=== PATIENT | female | born 1955 | race Two or more races ===

== ENCOUNTER 2018-03-24 21:21 | Emergency (ER) | payer OTHER ==
[~2018-03-24] VITALS: Ht 152.4 cm; Wt 68.0 kg
[~2018-03-24 21:21] MED LIST: AMBIEN10 MG; ASA81 MG; ATENOLOL; CALAN 240 MG; CARAFATE SU1 G/10 ML; CLONOPIN 1MG; COZAAR100 MG; HYDROCHLOROTH12.5 MG; HYZAAR; METFORMIN; METFORMIN HCL1000 MG; MOTRIN800 MG PO; NORVASC5 MG; PAXIL20 MG; PEPCID40 MG PO; PRAVACOL; PRISTIC; REGLAN5 MG/5 ML; RELAFEN500 MG PO; SEROQUEL; SEROQUEL XR200 MG; SYNTHROID50 MCG; TOPROL XL25 MG; ZANTAC150 M1
[2018-03-24] MEDS ORDERED: TOPROL XL50 M1 (21:52)
[2018-03-24] MEDS ORDERED: CLONAZEPAM2 MG (21:53)
[2018-03-24] MEDS ORDERED: JANUVIA100 MG (21:53)
[2018-03-24] MEDS ORDERED: LIPITOR20 MG (21:54)
== END 2018-03-24 23:51 | disposition home or self-care (01) ==
LOC: ER 21:21
DX: I10 Essential (primary) hypertension (principal)

== ENCOUNTER 2018-11-12 11:20 | Emergency (ER) | payer OTHER ==
[~2018-11-12] VITALS: Ht 152.4 cm; Wt 69.9 kg
[~2018-11-12 11:20] MED LIST changes: +CLONAZEPAM2 MG; +JANUVIA100 MG; +LIPITOR20 MG; +TOPROL XL50 M1
== END 2018-11-12 20:22 | disposition home or self-care (01) ==
LOC: ER 11:20
DX: R55 Syncope and collapse (principal)

== ENCOUNTER 2019-06-02 18:16 | Emergency (ER) | payer OTHER ==
[~2019-06-02] VITALS: Ht 152.4 cm; Wt 64.4 kg
[2019-06-02] MEDS ORDERED: WELLBUTRIN SR150 MG (18:28)
[2019-06-02] MEDS ORDERED: [UNRECOGNIZED DRUG - OTHER] (18:28)
[2019-06-02] MEDS ORDERED: CALTRATE 600 +1 EACH (18:28)
[2019-06-03] MEDS ORDERED: PHENERGAN25 MG PO (04:17)
== END 2019-06-03 04:14 | disposition home or self-care (01) ==
LOC: ER 18:16
DX: K29.60 Other gastritis without bleeding (principal)

== ENCOUNTER 2019-10-25 19:14 | Emergency (ER) | payer OTHER ==
[~2019-10-25] VITALS: Ht 152.4 cm; Wt 65.8 kg
[~2019-10-25 19:14] MED LIST changes: +CALTRATE 600 +1 EACH; +PHENERGAN25 MG PO; +WELLBUTRIN SR150 MG; +[UNRECOGNIZED DRUG - OTHER]
[2019-10-25] MEDS ORDERED: ATIVAN1 M1 (19:53)
[2019-10-25] MEDS ORDERED: JANUVIA100 MG (19:53)
[2019-10-25] MEDS ORDERED: RESTORIL30 MG (19:54)
== END 2019-10-25 21:13 | disposition home or self-care (01) ==
LOC: ER 19:14
DX: M94.0 Chondrocostal junction syndrome [Tietze] (principal)

== ENCOUNTER 2020-03-17 09:42 | Emergency (ER) | payer OTHER ==
[~2020-03-17] VITALS: Ht 152.4 cm; Wt 65.8 kg
[~2020-03-17 09:42] MED LIST changes: +ATIVAN1 M1; +RESTORIL30 MG
[2020-03-17] MEDS ORDERED: ALDACTONE (09:55)
== END 2020-03-17 15:04 | disposition home or self-care (01) ==
LOC: ER 09:42
DX: K29.60 Other gastritis without bleeding (principal)

== ENCOUNTER 2020-03-28 11:45 | Emergency (ER) | payer OTHER ==
[~2020-03-28] VITALS: Ht 157.5 cm; Wt 62.6 kg
[~2020-03-28 11:45] MED LIST changes: +ALDACTONE
== END 2020-03-28 14:48 | disposition home or self-care (01) ==
LOC: ER 11:45
DX: M25.511 Pain in right shoulder (principal)

== ENCOUNTER 2020-04-19 07:22 | Emergency (ER) | payer OTHER ==
[~2020-04-19] VITALS: Ht 152.4 cm; Wt 65.3 kg
[2020-04-19] MEDS ORDERED: ATIVAN2 M1 (07:37)
[2020-04-19] MEDS ORDERED: PROBIOTIC1 EAC2 (07:37)
[2020-04-19] MEDS ORDERED: ENZYCAP (07:38)
[2020-04-19] MEDS ORDERED: ZUPLENZ4 MG (07:39)
[2020-04-19] MEDS ORDERED: PANTOPRAZOLE SO40 MG (07:39)
== END 2020-04-19 12:32 | disposition home or self-care (01) ==
LOC: ER 07:22
DX: R10.13 Epigastric pain (principal); K59.09 Other constipation

== ENCOUNTER 2020-04-23 08:32 | Emergency (ER) | payer OTHER ==
[~2020-04-23] VITALS: Ht 152.4 cm; Wt 64.0 kg
[~2020-04-23 08:32] MED LIST changes: +ATIVAN2 M1; +ENZYCAP; +PANTOPRAZOLE SO40 MG; +PROBIOTIC1 EAC2; +ZUPLENZ4 MG
[2020-04-23] MEDS ORDERED: LOSARTAN POTAS100 MG (09:00)
== END 2020-04-23 14:49 | disposition home or self-care (01) ==
LOC: ER 08:32
DX: K21.9 Gastro-esophageal reflux disease without esophagitis (principal)

== ENCOUNTER 2020-05-01 07:19 | Emergency (ER) | payer OTHER ==
[~2020-05-01] VITALS: Ht 152.4 cm; Wt 64.4 kg
[~2020-05-01 07:19] MED LIST changes: +LOSARTAN POTAS100 MG
[2020-05-01] MEDS ORDERED: DULCOLAX10 MG (07:32)
[2020-05-01] MEDS ORDERED: ONDANSETRON HCL4 MG PO (07:33)
== END 2020-05-01 12:55 | disposition home or self-care (01) ==
LOC: ER 07:19
DX: R10.84 Generalized abdominal pain (principal)

== ENCOUNTER 2020-07-01 11:09 | Emergency (ER) | payer OTHER ==
[~2020-07-01] VITALS: Ht 152.4 cm; Wt 63.5 kg
[~2020-07-01 11:09] MED LIST changes: +DULCOLAX10 MG; +ONDANSETRON HCL4 MG PO
== END 2020-07-01 16:05 | disposition home or self-care (01) ==
LOC: ER 11:09
DX: U07.1 COVID-19 (principal); R07.0 Pain in throat

== ENCOUNTER 2021-04-03 10:05 | Emergency (ER) | payer OTHER ==
[~2021-04-03] VITALS: Ht 152.4 cm; Wt 70.3 kg
== END 2021-04-03 13:12 | disposition home or self-care (01) ==
LOC: ER 10:05
DX: S13.4XXA Sprain of ligaments of cervical spine, initial encounter (principal); M54.2 Cervicalgia; X50.0XXA Overexertion from strenuous movement or load, initial encounter; Y93.F2 Activity, caregiving, lifting; Y92.018 Other place in single-family (private) house as the place of occurrence of the external cause; Y99.8 Other external cause status

== ENCOUNTER 2021-04-06 15:04 | Emergency (ER) | payer OTHER ==
[~2021-04-06] VITALS: Ht 157.5 cm; Wt 72.6 kg
[2021-04-06] MEDS ORDERED: LIPITOR40 MG (15:12)
== END 2021-04-06 18:36 | disposition home or self-care (01) ==
LOC: ER 15:04
DX: M26.69 Other specified disorders of temporomandibular joint (principal)

== ENCOUNTER 2021-09-06 19:59 | Emergency (ER) | payer OTHER ==
[~2021-09-06] VITALS: Ht 152.4 cm; Wt 69.4 kg
[~2021-09-06 19:59] MED LIST changes: +LIPITOR40 MG
[2021-09-06] MEDS ORDERED: PEPCID20 MG PO (23:56)
[2021-09-06] MEDS ORDERED: ONDANSETRON HCL4 MG PO (23:56)
[2021-09-06] MEDS ORDERED: PROTONIX20 MG PO (23:56)
[2021-09-06] MEDS ORDERED: LEVSIN0.125 MG PO (23:56)
== END 2021-09-06 23:41 | disposition home or self-care (01) ==
LOC: ER 19:59
DX: K43.9 Ventral hernia without obstruction or gangrene (principal); R10.11 Right upper quadrant pain; R10.13 Epigastric pain; R11.2 Nausea with vomiting, unspecified

== ENCOUNTER 2022-02-16 06:00 | Day surgery (SDC) | payer OTHER ==
[~2022-02-16 06:00] MED LIST changes: +ALDACTONE25 MG PO; +ATIVAN2 M1 PO; +COZAAR100 MG PO; +GLUMETZA1000 MG PO; +LEVSIN0.125 MG PO; +PEPCID20 MG PO; +PROTONIX20 MG PO; +SEROQUEL200 MG PO; +SYNTHROID75 MCG PO
[2022-02-16] MEDS ORDERED: POLY119PG PO (15:56)
[2022-02-16] MEDS ORDERED: NEURONTIN600 M1 PO (15:56)
[2022-02-16] MEDS ORDERED: PERCOCET 5-3251 EACH PO (15:56)
== END 2022-02-16 19:05 | disposition home or self-care (01) ==
LOC: CIR.AMB 06:00
PROVIDERS: ATTEND Surgery
DX: K43.0 Incisional hernia with obstruction, without gangrene (principal); Z88.8 Allergy status to other drugs, medicaments and biological substances; I10 Essential (primary) hypertension; E03.9 Hypothyroidism, unspecified; Z79.84 Long term (current) use of oral hypoglycemic drugs; E11.9 Type 2 diabetes mellitus without complications; K21.9 Gastro-esophageal reflux disease without esophagitis

== ENCOUNTER 2022-03-06 13:19 | Emergency (ER) | payer OTHER ==
[~2022-03-06] VITALS: Ht 152.4 cm; Wt 68.0 kg
[~2022-03-06 13:19] MED LIST changes: +NEURONTIN600 M1 PO; +PERCOCET 5-3251 EACH PO; +POLY119PG PO
[2022-03-06] MEDS ORDERED: COMBIGAN EYE DRO5 ML OP (13:36)
[2022-03-06] MEDS ORDERED: QUETIAPINE FUM100 MG PO (13:37)
[2022-03-06] MEDS ORDERED: METFORMIN HCL1000 M3 PO (13:37)
[2022-03-06] MEDS ORDERED: LEVOTHYROXINE75 MCG PO (13:37)
[2022-03-06] MEDS ORDERED: ATORVASTATIN CA40 MG PO (13:37)
== END 2022-03-06 16:38 | disposition left against medical advice (07) ==
LOC: ER 13:19
DX: T81.41XA Infection following a procedure, superficial incisional surgical site, initial encounter (principal); E11.9 Type 2 diabetes mellitus without complications; I10 Essential (primary) hypertension; E03.9 Hypothyroidism, unspecified; F32.A Depression, unspecified; E78.00 Pure hypercholesterolemia, unspecified; Z98.890 Other specified postprocedural states; Z79.84 Long term (current) use of oral hypoglycemic drugs; Z88.5 Allergy status to narcotic agent

== ENCOUNTER → 2022-05-23 | Emergency (ER) | payer OTHER ==
[~2022-05-23] VITALS: Ht 152.4 cm; Wt 68.0 kg
[~2022-05-23] MED LIST changes: +ATORVASTATIN CA40 MG PO; +COMBIGAN EYE DRO5 ML OP; +LEVOTHYROXINE75 MCG PO; +METFORMIN HCL1000 M3 PO; +QUETIAPINE FUM100 MG PO
== END | disposition home or self-care (01) ==
LOC: ER 14:53
DX: M62.838 Other muscle spasm (principal); E11.9 Type 2 diabetes mellitus without complications; Z79.84 Long term (current) use of oral hypoglycemic drugs; I10 Essential (primary) hypertension; Z88.8 Allergy status to other drugs, medicaments and biological substances

== ENCOUNTER 2024-01-07 18:28 | Emergency (ER) | payer OTHER ==
[~2024-01-07] VITALS: Ht 152.4 cm; Wt 67.6 kg
[~2024-01-07 18:28] MED LIST changes: +ATORVASTATIN CA20 MG PO; +BRIMONIDINE-TIMO5 ML OP; +BUPROPION HCL150 M1 PO; +KETO10TA2 PO; +LATANOPROST2.5 ML OP; +LORAZEPAM2 MG PO; +LOSARTAN POTAS100 MG PO; +METFORMIN HCL1000 M2 PO; +NITROFURANTOIN100 M1 PO; +NORFLEX100MG PO; +QUETIAPINE FUM200 MG PO
[2024-01-07] MEDS ORDERED: ONDANSETRON HCL 2 MG/ML VIAL IV ONE (20:00)
[2024-01-07] MEDS ORDERED: HYOSCYAMINE SULFATE 0.125 MG TAB.SUBL SL ONE (20:00)
[2024-01-07] MEDS ORDERED: FAMOTIDINE/PF 20 MG/2 ML VIAL IV PUSH ONE (20:00)
[2024-01-07 20:26] LABS: HEMATOCRIT 41.2 % (36.0-45.00); HEMOGLOBIN 14.3 g/dL (12.0-15.00); MEAN CELL VOLUME 95.6 fL (80.00-100.00); MEAN CORPUSCULAR HEMOGLOBIN 33.1 pg (27.00-32.0); MEAN CORPUSCULAR HGB CONC 34.6 g/dl (32.0-36.0); PLATELET COUNT 278 K/uL (150-450); RED BLOOD COUNT 4.31 M/uL (4.00-6.00); RED CELL DISTRIBUTION WIDTH 13.6 % (11.5-14.5)
[2024-01-07 20:46] LABS: ALBUMIN 4.5 gm/dL (3.4-5.0); BILIRUBIN TOTAL 1.23 mg/dL (0.3-1.2); CALCIUM 10.3 mg/dL (8.5-10.1); CREATININE SERUM 0.92 mg/dL (0.55-1.02); GFR 60.89; GLOBULINA 3.6 G/DL (2.4-3.5); POTASSIUM 3.67 mEq/L (3.5-5.1); TOTAL PROTEIN 8.1 gm/dL (6.4-8.2)
== END 2024-01-07 22:15 | disposition home or self-care (01) ==
LOC: ER 18:29
PROVIDERS: General Practice
DX: K29.70 Gastritis, unspecified, without bleeding (principal); E11.9 Type 2 diabetes mellitus without complications; Z79.84 Long term (current) use of oral hypoglycemic drugs; I10 Essential (primary) hypertension; Z88.8 Allergy status to other drugs, medicaments and biological substances; Z20.822 Contact with and (suspected) exposure to COVID-19
CPT/HCPCS: 36415; 96365; 99283; J2405; J3490

== ENCOUNTER 2024-05-28 08:16 | Emergency (ER) | payer OTHER ==
[~2024-05-28] VITALS: Ht 152.4 cm; Wt 67.1 kg
[~2024-05-28 08:16] MED LIST changes: +FORTAMET1000 MG; +SEROQUEL50 MG; +SYNTHROID75 MCG
[2024-05-28] MEDS ORDERED: PROTONIX20 MG PO (08:28)
[2024-05-28] MEDS ORDERED: FAMOtidine 10 MG/ML (4ML VIAL) IV STA (09:36)
[2024-05-28] MEDS ORDERED: 0.9 % SODIUM CHLORIDE 1,000 ML IV STA (09:36)
[2024-05-28] MEDS ORDERED: ONDANSETRON HCL 2 MG/ML VIAL IV STA (09:38)
[2024-05-28] MEDS ORDERED: METOCLOPRAMIDE HCL 5 MG/ML VIAL ONE (09:44)
[2024-05-28] MEDS ORDERED: ONDANSETRON HCL 2 MG/ML VIAL ONE (09:44)
[2024-05-28] MEDS ORDERED: METOCLOPRAMIDE HCL 10 MG in 0.9 % SODIUM CHLORIDE 50 ML IV ONE (09:45)
[2024-05-28 10:30] LABS: HEMATOCRIT 38.5 % (36.0-45.00); HEMOGLOBIN 13.1 g/dL (12.0-15.00); MEAN CELL VOLUME 90.7 fL (80.00-100.00); MEAN CORPUSCULAR HEMOGLOBIN 30.9 pg (27.00-32.0); MEAN CORPUSCULAR HGB CONC 34.1 g/dl (32.0-36.0); PLATELET COUNT 293 K/uL (150-450); RED BLOOD COUNT 4.24 M/uL (4.00-6.00); RED CELL DISTRIBUTION WIDTH 15.2 % (11.5-14.5)
[2024-05-28 11:00] LABS: ALBUMIN 4.1 gm/dL (3.4-5.0); BILIRUBIN,CONJUGATED 0.19 mg/dL (0.0-0.2); BILIRUBIN,UNCONJUGATED 0.81 mg/dL (0.0-0.6); CALCIUM 9.6 mg/dL (8.5-10.1); CREATININE SERUM 0.76 mg/dL (0.55-1.02); GFR 75.91; POTASSIUM 3.86 mEq/L (3.5-5.1)
[2024-05-28 12:07] LABS: PH,URINE 7.5 (5.0-8.0); URINE APPEARANCE Clear; URINE BILIRRUBIN Negative (NEGATIVE); URINE BLOOD Negative; URINE COLOR Yellow; URINE KETONE Negative (NEGATIVE); URINE LEUKOCYTE Negative; URINE NITRATE Negative; URINE PROTEIN Negative (NEGATIVE); URINE UROBILINOGEN 0.2 E.U./dl
[2024-05-28 12:08] LABS: URINE BACTERIA 30.1 uL (0.0-1933)
[2024-05-28 12:38] LABS: URINE EPITHELIAL CELLS 1.3 uL (0.0-38.8); URINE GLUCOSE >=1000 MG/DL (NEGATIVE); URINE RBC 1.5 uL (0.0-20.8); URINE WBC 1.3 uL (0.0-23.2)
== END 2024-05-28 14:04 | disposition home or self-care (01) ==
LOC: ER 08:17
PROVIDERS: General Practice
DX: R19.7 Diarrhea, unspecified (principal); R10.9 Unspecified abdominal pain; F41.9 Anxiety disorder, unspecified; I10 Essential (primary) hypertension; Z88.6 Allergy status to analgesic agent

== ENCOUNTER → 2025-09-20 | Emergency (ER) | payer OTHER ==
[~2025-09-20] VITALS: Ht 152.4 cm; Wt 70.8 kg
[~2025-09-20] MED LIST changes: +0.9 % SODIUM CHLORIDE 1,000 ML IV ONE; +CEFTRIAXONE SODIUM 1,000 MG VIAL IV ONE; +CIPRO500 MG PO; +FAMOtidine 10 MG/ML (4ML VIAL) IV PUSH ONE; +KETOROLAC TROMETHAMINE 30 MG VIAL IU ONE; +PEPCID AC20 MG PO
[2025-09-20 12:51] LABS: BASO % 1.0 % (0.1-1.2); EOS # 0.04 (0.04-0.54); EOS % 0.5 % (0.7-7.0); LYMPH # 2.15 (1.18-3.74); LYMPH % 25.8 % (19.3-53.1); MEAN PLATELET VOLUME 10.20 fl (9.4-12.4); MONO # 0.63 (0.24-0.82); MONO % 7.6 % (4.7-12.5); NEUT # 5.42 (1.56-6.13); NEUT % 64.9 % (34.0-71.1); RED CELL DISTRIBUTION WIDTH 14.6 % (11.6-14.4)
[2025-09-20 13:18] LABS: URINE APPEARANCE Clear; URINE BILIRRUBIN Negative (NEGATIVE); URINE BLOOD Negative; URINE COLOR Yellow; URINE GLUCOSE Negative (NEGATIVE); URINE KETONE Negative (NEGATIVE); URINE LEUKOCYTE Moderate; URINE NITRATE Negative; URINE PROTEIN Negative (NEGATIVE); URINE UROBILINOGEN 0.2 E.U./dl
[2025-09-20 13:21] LABS: URINE BACTERIA 129.5 uL (0.0-1933); URINE EPITHELIAL CELLS 13.5 uL (0.0-38.8); URINE WBC 120.9 uL (0.0-23.2)
[2025-09-20 13:30] LABS: URINE CAST 0.14 uL (0.0-1.40); URINE RBC 1.1 uL (0.0-20.8)
[2025-09-20 13:35] LABS: ALT/SGPT 25.0 U/L (12-78); AST/SGOT 20.0 U/L (15-37); BILIRUBIN TOTAL 0.94 mg/dL (0.3-1.2); BILIRUBIN,CONJUGATED 0.23 mg/dL (0.0-0.2); BUN CREA RATIO 20.0 (7.0-25.0); CREATININE SERUM 0.74 mg/dL (0.55-1.02); GFR 77.81; GLOBULINA 3.2 G/DL (2.4-3.5); GLUCOSE FASTING 113.0 mg/dL (65-100); OSMOLALITY SERUM 288.0 MOSM/KG (275-295)
== END | disposition home or self-care (01) ==
LOC: ER 09:22
PROVIDERS: General Practice
DX: R10.13 Epigastric pain (principal); Z88.8 Allergy status to other drugs, medicaments and biological substances; E05.80 Other thyrotoxicosis without thyrotoxic crisis or storm; E78.00 Pure hypercholesterolemia, unspecified; I10 Essential (primary) hypertension; E11.9 Type 2 diabetes mellitus without complications; Z79.84 Long term (current) use of oral hypoglycemic drugs
CPT/HCPCS: 36415; 74177; 93005; 96365; 96366; 99284; J1885; J3490; J7030; Q9965